=== PATIENT | male | born 1995 | race Hispanic/Latino ===

== ENCOUNTER 2017-04-15 14:16 | Outpatient (CLI) | payer BC ==
--- NOTE | 2017-04-15 19:12 | MRI ---
[facility] [place] AND VERTEBROBASILAR SYSTEM 04/15/17 HISTORY: Vascular headache, not elsewhere specified. Patient complains of exertional headaches which occurred after working out a few weeks ago. TECHNIQUE: 3D [id number] images of [place] and vertebrobasilar system are obtained. 3D reformat liz images are provided. IMPRESSION: There is no focal stenosis or branch occlusion seen involving the [place] or vertebrobasilar system. No aneurysm is seen within the limitations of the technique of this exam. IMPRESSION: No focal stenosis involving the [place] or vertebrobasilar system. POS: [facility]
== END 2017-04-15 14:17 | disposition home or self-care (01) ==
LOC: SCSMRI 14:16
PROVIDERS: ATTEND Psychiatry & Neurology Neurology
DX: G44.1 Vascular headache, not elsewhere classified (principal)
CPT/HCPCS: 70544